=== PATIENT | male | born 2005 | race Caucasian/White ===

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

== ENCOUNTER 2025-01-26 14:07 | Emergency (ER) | payer OTHER, SELFPAY ==
--- NOTE | ~2025-01-26 | XR_ITS ---
EXAM: XR forearm LT 2V DATE: 01/26/2025 15:04 HISTORY: laceration . COMPARISON: None available. FINDINGS: Normal mineralization. No fracture or dislocation. No lytic or blastic lesion. Joint space s are maintained. No erosion or periosteal change. Possible soft tissue density defect anteriorly. IMPRESSION: No acute osseous finding in the left forearm. Reviewed, dictated and finalized at location K.
--- OUTSIDE RECORDS SUMMARY | 2025-01-26 14:23 | XMS_ITS | Clinical Summary ---
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[employer] 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 Gender Identity Not on file Sexual Orientation Not on file Last Filed Vital Signs Vital Sign Reading Time Taken Comments Blood Pressure 107/61 10/25/2024 6:15 AM COMPUTER [employer]WORK [employer] SYSTEM[employer] ENGINEER Pulse 83 10/25/2024 6:15 AM COMPUTER [employer]WORK AND SYSTEMS ENGINEER Temperature 36.4 C (97.5 F) 10/25/2024 3:41 AM COMPUTER NETWORK AND SYSTEMS ENGINEER Respiratory Rate 18 10/25/2024 5:25 AM COMPUTER NETWORK AND SYSTEMS ENGINEER Oxygen Saturation 97% 10/25/2024 6:15 AM COMPUTER [employer]WORK AND SYSTEM[employer] ENGINEER Inhaled Oxygen Concentration - - Weight 63 kg (138 lb 14.2 oz) 10/25/2024 3:41 AM COMPUTER [employer]WORK AND SYSTEMS ENGINEER Height 162.6 cm (5' 4 ) 10/25/2024 3:41 AM COMPUTER [employer]WORK AND SYSTEM[employer] ENGINEER Body Mass Index 23.84 10/25/2024 3:41 AM COMPUTER [employer]WORK [employer] SYSTEMS ENGINEER Plan of Treatment Health Maintenance Due Date Last Done Comments Hepatitis B Vaccines (3 of 3 - 3-dose series) 02/04/2006 2005, 2005 Annual Physical 2008 Meningococcal B Vaccine (1 of 2 - Standard) 2021 Hepatitis C 2023 COVID-19 Vaccine (1 - season) 2024 DTaP, Tdap and Td Vaccines (8 - Td or Tdap) 10/25/2034 10/25/2024, 05/26/2018, 04/11/2010, Additional history exists Pneumococcal Vaccine: Pediatrics (0 to 5 Years) and At-Risk Patients (6 to 49 Years) Aged Out 2005, 2005 No longer eligibl e based on patient's age to complete this topic HPV Vaccines Completed 04/19/2021, 05/26/2018 Meningococcal Vaccine Aged Out 07/15/2024 , 07/05/2018, 05/18/2015 No longer eligible based on patient's age to complete this topic RSV Immunizations Under 20 Months Aged Out No longer eligible based on patient's age to complete this topic Insurance [place] Care Teams Teacher Theater Arts Relationship Specialty Start Date End Date None, Provider, PCP - General UNKNOWN PHYSICIAN SPECIALTY 10/25/24
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
[2025-01-26 14:27] VITALS: BP 171/97; PULSE 79; RESP 20; TEMP 37; O2SAT 100
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
--- OUTSIDE RECORDS SUMMARY | 2025-01-26 15:11 | XMS_ITS | Clinical Summary ---
Author Organization [facility] Address [address] [place] [id number] Care Team Providers Care Special Warfare Combatant Crewman Name Role Phone None, Provider MD Primary Care Provider Unavaila ble Allergies No known active allergies Immunizations Immunization Administration Dates Next Due Tdap (Boostrix) 10/25/2024 Social History Tobacco Use Types Packs/Day Years Used Date Smoking Tobacco: Never Assessed Sex and Gender Information Value Date Recorded Sex Assigned at Male 10/25/2024 5:49 AM PROJECT LANDSCAPE ARCHITECT Legal Sex Male 3:27 AM PROJECT LANDSCAPE ARCHITECT Gender Identity Not on file Sexual Orientation Not on file Last Filed Vital Signs Vital Sign Reading Time Taken Comments Blood Pressure 107/61 10/25/2024 6:15 AM PROJECT LANDSCAPE ARCHITECT Pulse 83 10/25/2024 6:15 AM PROJECT LANDSCAPE ARCHITECT Temperature 36.4 C (97.5 F) 10/25/2024 3:41 AM PROJECT LANDSCAPE ARCHITECT Respiratory Rate 18 10/25/2024 5:25 AM PROJECT LANDSCAPE ARCHITECT Oxygen Saturation 97% 10/25/2024 6:15 AM PROJECT LANDSCAPE ARCHITECT Inhaled Oxygen Concentration - - Weight 63 kg (138 lb 14.2 oz) 10/25/2024 3:41 AM PROJECT LANDSCAPE ARCHITECT Height 162.6 cm (5' 4 ) 10/25/2024 3:41 AM PROJECT LANDSCAPE ARCHITECT Body Mass Index 23.84 10/25/2024 3:41 AM PROJECT LANDSCAPE ARCHITECT Plan of Treatment Health Maintenance Due Date [...] patient's age to complete this topic Insurance [employer] Care Teams Special Warfare Combatant Crewman Relationship Specialty Start Date End Date None, Provider, PCP - General UNKNOWN PHYSICIAN SPECIALTY 10/25/24
[2025-01-26] MEDS: TETANUS,DIPHTHERIA,AC PERTUSSIS ADULT (0.5 ML) BOOSTRIX IM (15:37)
[2025-01-26] MEDS: SULFAMETHOXAZOLE/TRIMETHOPRIM 800/160 MG DS TABLET 1 TAB PO (15:37)
== END 2025-01-26 16:15 | disposition home or self-care (01) ==
PROVIDERS: Emergency Provider Physician Assistant
DX: S51.812A Laceration without foreign body of left forearm, initial encounter (principal); W20.8XXA Other cause of strike by thrown, projected or falling object, initial encounter; Z23 Encounter for immunization
CPT/HCPCS: 73090; 90471; 90715; 99283; A9270